=== PATIENT | male | born 1995 | race Hispanic/Latino ===

== ENCOUNTER 2017-09-19 15:50 | Emergency (ER) | payer OTHER ==
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
== END 2017-09-19 17:20 | disposition home or self-care (01) ==
LOC: ERS 15:50
DX: S06.0X0A Concussion without loss of consciousness, initial encounter (principal); S01.01XA Laceration without foreign body of scalp, initial encounter; Y04.2XXA Assault by strike against or bumped into by another person, initial encounter
CPT/HCPCS: 70450

== ENCOUNTER 2019-07-30 14:07 | Emergency (ER) | payer OTHER, SELFPAY ==
--- NOTE | 2019-07-30 14:51 | RAD ---
PORTABLE CHEST ONE VIEW: Date: 07-30-2019 Time: 2:37 p.m. History: Chest pain FINDINGS: The heart size is normal. The lungs are expanded without lobar consolidation, pneumothoraces or pleur al effusions. IMPRESSION: No radiographic evidence of acute cardiopulmonary process. POS: [facility]
[2019-07-30 15:18] LABS: #Basophils 0.1 thou/uL (0.0-0.2); #Eosinphils 0.1 thou/uL (0.0-0.7); #Lymphocytes 2.1 thou/uL (1.20-3.40); #Monocytes 0.4 thou/uL (0.11-0.59); #Neutrophils 3.8 thou/uL (1.40-6.50); %Basophils 1.2 % (0.0-1.0); %Eosinophils 2.1 % (0.0-10.0); %Lymphocytes 32.4 % (21.0-51.0); %Monocytes 6.4 % (0.0-10.0); Hemoglobin 16.7 g/dL (14.0-18.0); Mean Corpuscular HGB CONC 32.7 g/dL (32.0-36.0); Mean Corpuscular Volume 91.7 fL (78.0-98.0); Mean Platelet Volume 8.5 fL (7.4-10.4); Platelet Count 277 thou/uL (130-400); RBC Distribution Width 11.7 % (11.5-14.5); Red Blood Cell (RBC) Count 5.58 mill/uL (4.70-6.10); White Blood Cell (WBC) Count 6.5 thou/uL (4.8-10.8)
[2019-07-30 15:39] LABS: ALT (SGPT) 36 U/L (8-55); AST (SGOT) 28 U/L (5-34); Albumin 4.3 g/dL (3.5-5.0); Alkaline Phosphatase 84 U/L (40-110); Anion Gap 11 mmol/L (10-20); BUN (Urea Nitrogen) 9 mg/dL (8.9-20.6); Bilirubin, Total 0.2 mg/dL (0.2-1.2); Calc. Creatinine Clearance 0 mL/min (70-130); Calcium 9.4 mg/dL (7.8-10.44); Carbon Dioxide 28 mmol/L (22-29); Chloride 102 mmol/L (98-107); Estimated GFR-MDRD Greater than 90; Globulin 3.3 g/dL (2.4-3.5); Glucose 99 mg/dL (70-105); Protein, Total 7.6 g/dL (6.0-8.3); Sodium 137 mmol/L (136-145)
--- NOTE | 2019-08-01 14:24 | EKG ---
Test Reason : Blood Pressure : / mmHG Vent. Rate : 100 BPM Atrial Rate : 100 BPM P-R Int : 134 ms QRS Dur : 082 ms QT Int : 318 ms P-R-T Axes : 050 -33 048 degrees QTc Int : 410 ms Normal sinus rhythm Left axis deviation Abnormal ECG Confirmed by MITCHELL LIMA MD ([id number]), editorial director SILVERIO CARROLL ([id number]) on 08/01/2019 2:23:35 PM Referred By: Confirmed By:MITCHELL LIMA MD
== END 2019-07-30 16:24 | disposition home or self-care (01) ==
LOC: ERS 14:07
DX: R07.89 Other chest pain (principal)
CPT/HCPCS: 36415; 71045; 80053; 84484; 85025; 85379; 93005